=== PATIENT | male | born 1955 | race Two or more races ===

== ENCOUNTER 2016-09-15 08:44 | Outpatient (CLI) ==
[2016-09-15 09:02] LABS: BASOPHILS # (AUTO) 0.1 K/uL (0-0.2); BASOPHILS % (AUTO) 0.9 % (0.0-3.0); EOSINOPHILS # (AUTO) 0.3 K/ul (0.0-0.7); HEMATOCRIT 46.1 % (42.0-52.0); HEMOGLOBIN 15.2 g/dl (14.0-18.0); IMMATURE GRANULOCYTE % (AUTO) 0.2 % (0.0-5.0); LYMPHOCYTES # (AUTO) 3.3 K/uL (0.60-3.4); LYMPHOCYTES % (AUTO) 30.7 (10.0-50.0); MEAN CORPUSCULAR VOLUME 90.9 fl (80.0-94.0); MONOCYTES % (AUTO) 8.8 (0-10); NEUTROPHILS # (AUTO) 6.1 K/ul (2.0-6.9); NEUTROPHILS % (AUTO) 56.4; PLATELET COUNT 284 10^3/uL (140-440); RED BLOOD COUNT 5.07 10^6/ul (4.70-6.10); WHITE BLOOD COUNT 10.76 K/ul (4.2-10.2)
[2016-09-15 09:48] LABS: ALBUMIN 3.8 g/dL (3.4-5.0); ALBUMIN/GLOBULIN RATIO 1.03; BILIRUBIN,TOTAL 0.72 mg/dL (0.00-1.20); BUN/CREATININE RATIO 8.08; CALCIUM 9.2 mg/dL (8.2-10.2); CHOL/HDL RATIO 7.2 (4.5-6.4); CREATININE 1.36 mg/dL (0.60-1.10); TOTAL PROTEIN 7.5 g/dL (6.4-8.2)
== END 2016-09-15 08:45 | disposition home or self-care (01) ==
LOC: LAB 08:44
PROVIDERS: ATTEND Nurse Practitioner Family
DX: I49.9 Cardiac arrhythmia, unspecified (principal); Z00.00 Encounter for general adult medical examination without abnormal findings; Z12.5 Encounter for screening for malignant neoplasm of prostate
CPT/HCPCS: 36415; 80053; 80061; 84443; 85025; 93005; 93010

== ENCOUNTER 2016-09-23 06:35 | Outpatient (CLI) ==
--- NOTE | 2016-09-23 09:54 | STRESSECHO ---
Date of Test: 09/23/16 Reason for Exam: SINUS ARRHYTHMIA, HYPERLIPIDEMIA Ordering Physician: DESMOND SENIOR Physical Findings: S1, S2, NO S3 Resting EKG: SINUS RHYTHM/ NO ACUTE CHANGES, PVC Target Heart Rate: 137/162 STAGE MPH/GRADE HEART RATE BPM BLOOD PRESSURE mmhg RHYTHM S-T SEGMENT +/- UP DOWN SYMPTOMS,COMMENTS At Rest 57 122/60 SR X NONE 1 1.7/10% 133 120/72 SR X NONE 2 2.5/12% 3 3.4/14% 4 4.2/16% 5 5.0/18% Immediately after 160 138/70 SR X MILD SOB Durations of Exercise: 4:31 Maximum Heart Rate Reached: 160 Reason for Termination: MILD SOB 3 MIN POST EXER: 65 HR/BPM, 138/70 MMHG, SINUS RHYTHM INTERPRETATION: 97% OXYGEN SATURATION WITH EXERCISE ON ROOM AIR METS 7.0 1. TEST NEGATIVE FOR ISCHEMIC ST-T WAVE CHANGES 2. NO CHEST PAIN OR CHEST DISCOMFORT 3. NO ARRHYTHMIAS 4. PVC'S --ISOLATED AT REST AND NO PVC'S WITH EXERCISE NORMAL LEFT VENTRICULAR CONTRACTILITY--RESTING AND POST EXERCISE MTDD
--- NOTE | 2016-09-23 10:05 | ECHOSTRESS ---
Date of Exam: 09/23/16 Ordering Physician: DESMOND SENIOR Reason for Echo: SINUS ARRHYTHMIA, HYPERLIPIDEMIA, STRESS TEST--NO ISCHEMIA M-Mode Normal Adult Results LV Dimensions Normal Adult Results AoV Opening excursions >1.6 LVEDD-base- 3.5-5.8 Ao root dimensions 2.0-3.7 LVESD-base- 3.1-4.6 L. Atrium dimensions 1.9-3.8 Post. Wall thickness 0.8-1.1 IV septum (thickness) 0.7-1.2 Post. Wall excursion 0.72-1.3 Septal motion Systolic motion R. Ventricular cavity 1.5-2.0 LVEF 60% Paradoxical septal wall motion 2-D: NORMAL LEFT VENTRICULAR CONTRACTILITY--RESTING AND POST EXERCISE M-MODE: MV: AV: TV: PV: CHAMBER SIZE: WALL MOTION: NORMAL LEFT VENTRICULAR CONTRACTILITY--RESTING AND POST EXERCISE PERICARDIUM: INTERPRETATION: 1. NORMAL LEFT VENTRICULAR CONTRACTILITY--RESTING AND POST EXERCISE MTDD
== END 2016-09-23 06:36 | disposition home or self-care (01) ==
LOC: CAR 06:35
PROVIDERS: ATTEND Nurse Practitioner Family
DX: E78.5 Hyperlipidemia, unspecified (principal); I49.8 Other specified cardiac arrhythmias

== ENCOUNTER 2016-10-26 09:44 | Outpatient (CLI) ==
[2016-10-26 10:48] LABS: ALBUMIN 3.8 g/dL (3.4-5.0); ALBUMIN/GLOBULIN RATIO 0.97; BILIRUBIN,TOTAL 0.62 mg/dL (0.00-1.20); BUN/CREATININE RATIO 7.46; CALCIUM 9.3 mg/dL (8.2-10.2); CREATININE 1.34 mg/dL (0.60-1.10); TOTAL PROTEIN 7.7 g/dL (6.4-8.2)
== END 2016-10-26 09:45 | disposition home or self-care (01) ==
LOC: LAB 09:44
PROVIDERS: ATTEND Nurse Practitioner Family
DX: E78.5 Hyperlipidemia, unspecified (principal)
CPT/HCPCS: 36415; 80053; 80061

== ENCOUNTER 2017-01-24 09:37 | Outpatient (CLI) ==
[2017-01-24 10:09] LABS: ALBUMIN 3.6 g/dL (3.4-5.0); ALBUMIN/GLOBULIN RATIO 1.06; ANION GAP 13.8; BILIRUBIN,TOTAL 0.35 mg/dL (0.00-1.20); BUN/CREATININE RATIO 11.62; CALCIUM 9.1 mg/dL (8.2-10.2); CHOL/HDL RATIO 5.2 (4.5-6.4); CREATININE 1.29 mg/dL (0.60-1.10); POTASSIUM 3.8 mmol/L (3.5-5.1)
== END 2017-01-24 09:38 | disposition home or self-care (01) ==
LOC: LAB 09:37
PROVIDERS: ATTEND Nurse Practitioner Family
DX: E78.2 Mixed hyperlipidemia (principal); E78.5 Hyperlipidemia, unspecified
CPT/HCPCS: 36415; 80053; 80061

== ENCOUNTER 2017-03-18 07:32 | Outpatient (CLI) ==
--- NOTE | 2017-03-18 08:47 | US ---
Exam: Contreras-scale and color Doppler ultrasonographic evaluation of the kidneys and urinary bladder. Comparison: None available. Reason for exam: Chronic kidney disease. FINDINGS: The right kidney measures approximately 9.88 x 4.37 x 3.91 cm without hydronephrosis or n ephrolithiasis. The left kidney measures 10.36 x 5.26 x 4.92 cm without hydronephrosis or nephrolithiasis. There is a 4.47 x 4.17 x 3.57 centimeter cyst in the mid inferior pole. The bladder is grossly unremarkable without wall thickening, diverticula, or mass. Ureteral jets we re not seen. Bladder evaluation is limited due to non distension. Impression: 1. Left renal cyst. 2. No hydronephrosis or nephrolithiasis is seen in either kidney. 3. Incompletely evaluated urinary bladder secondary to non distension.
== END 2017-03-18 07:33 | disposition home or self-care (01) ==
LOC: RAD 07:32
PROVIDERS: ATTEND Internal Medicine Nephrology
DX: N18.3 Chronic kidney disease, stage 3 (moderate) (principal)
CPT/HCPCS: 76770

== ENCOUNTER 2017-04-27 08:32 | Outpatient (CLI) ==
[2017-04-27 09:09] LABS: ALBUMIN 3.6 g/dL (3.4-5.0); ALBUMIN/GLOBULIN RATIO 1.09; ANION GAP 13.8; BILIRUBIN,TOTAL 0.61 mg/dL (0.00-1.20); BUN/CREATININE RATIO 10.74; CHOL/HDL RATIO 5.1 (4.5-6.4); CREATININE 1.21 mg/dL (0.60-1.10); POTASSIUM 3.8 mmol/L (3.5-5.1); TOTAL PROTEIN 6.9 g/dL (6.4-8.2)
== END 2017-04-27 08:33 | disposition home or self-care (01) ==
LOC: LAB 08:32
PROVIDERS: ATTEND Nurse Practitioner Family
DX: R79.89 Other specified abnormal findings of blood chemistry (principal); I49.3 Ventricular premature depolarization; E78.5 Hyperlipidemia, unspecified
CPT/HCPCS: 36415; 80053; 80061

== ENCOUNTER 2017-05-02 08:42 | Outpatient (CLI) ==
--- NOTE | 2017-05-02 09:07 | DI ---
EXAM: Two views of the chest. History: Short of breath Findings: Heart size is normal. No focal consolidation. No appreciable pleural fluid and no pneum othorax. No acute osseous abnormalities. Impression: No acute cardiopulmonary process.
== END 2017-05-02 08:43 | disposition home or self-care (01) ==
LOC: CAR 08:42
PROVIDERS: ATTEND Nurse Practitioner Family
DX: R06.02 Shortness of breath (principal); Z87.891 Personal history of nicotine dependence

== ENCOUNTER 2017-09-21 10:20 | Outpatient (CLI) | END 2017-09-21 10:21 | disposition home or self-care (01) | LOC: LAB 10:20 | PROVIDERS: ATTEND Nurse Practitioner Family | DX: E78.5 Hyperlipidemia, unspecified (principal); I49.3 Ventricular premature depolarization; Z12.5 Encounter for screening for malignant neoplasm of prostate | CPT/HCPCS: 36415; 80053; 80061; 85025 ==

== ENCOUNTER 2018-04-04 10:28 | Outpatient (CLI) | END 2018-04-04 10:29 | disposition home or self-care (01) | LOC: LAB 10:28 | PROVIDERS: ATTEND Internal Medicine Nephrology | DX: N18.2 Chronic kidney disease, stage 2 (mild) (principal) | CPT/HCPCS: 36415; 80069; 81001; 82570; 83735; 83970; 84156; 84550; 85027 ==